=== PATIENT | female | born 1935 | race Caucasian/White ===

== ENCOUNTER 2016-06-20 17:50 | Emergency (ER) | payer OTHER, MEDICARE ==
[~2016-06-20] VITALS: Ht 162.6 cm; Wt 68.0 kg
--- NOTE | ~2016-06-20 | P ---
[facility] [place] [address] PROCEDURE REPORT Name: PATRIZIASALLY SINTIA Room #: DEP [facility]#: [id number] Admission: 06/20/16 Attend Phys: Discharge: 06/20/16 Date of : 31 Report #: [id number] THIS REPORT FOR: //name// CC: Isamar Leong MD BRIEF HISTORY: The patient is an 80-year-old woman with longstanding history of reflux, which has not been well controlled. She has recently for the past month or so, has had intermittent solid food dysphagia. In addition, she has major stress in her life that her several months ago unexpectedly. She developed food bolus obstruction this evening while eating raw baby carrots. PREOPERATIVE DIAGNOSES: Food bolus obstruction in the esophagus and poorly controlled reflux disease. POSTOPERATIVE DIAGNOSES: 1. Food bolus obstruction in the esophagus, cleared. 2. Esophageal tear, distal esophagus secondary to food bolus obstruction. 3. Moderately tight Schatzki ring. 4. Small hiatus hernia. 5. Erythematous gastritis. MEDICATIONS: Conscious sedation with 50 mg of fentanyl and 3 mg of Versed. SPECIMEN: None. ESTIMATED BLOOD LOSS: None. PROCEDURE: EGD with clearance of food bolus obstruction of the esophagus. CONSENT: Prior to conscious sedation, procedure of endoscopy discussed with the patient as well as potential risks and its complications. She indicates she understands and desires to proceed. DESCRIPTION OF PROCEDURE: With the patient in left lateral decubitus position, the Fuji video endoscope was inserted in the cervical esophagus under direct vision without difficulty. Examination of this organ to its entire length revealed no fluid or food debris in the proximal mid esophagus. However, distally solid material was seen impacted at, what appeared to be, the GE junction. FINDINGS: The material is orange in color and consistent with history of ingested carrots. There is assumed to be a clump of carrots impacted right at the squamocolumnar junction. I was able to work the scope around the periphery and see that there appeared to be a ring. I could see small amount of lumen. I very carefully passed the scope into the lumen alongside the ring and the food [facility] [address] [place] [address] PROCEDURE REPORT Name: SALLY ACHARYA Room #: DEP [facility].#: [id number] Admission: 06/20/16 Attend Phys: Discharge: 06/20/16 Date of : 31 Report #: [id number] bolus. The scope was advanced fully into the stomach, which was examined on end views as well as retroflexed views. Examination of the proximal stomach revealed some food debris which past through with the scope. A small hiatus hernia was seen. No mass lesions were seen. Examination of distal stomach revealed some erythema, but no ulcers, erosions or evidence of outlet obstruction. The pylorus was normal. Duodenal bulb was normal. Second portion of duodenum was normal. The scope was then withdrawn back in the esophagus. We very carefully worked the remaining food debris into the stomach. Upon clearance of the distal esophagus, there was clearly a 1.5 cm x 3 mm tear in the distal esophagus at the level of the GE junction. There appeared to be organizing material around the edge of the tear with some whitish exudate and no blood. I suspect this happened earlier today with her food bolus obstruction. There was no blood seen during this exam, and there did not appear to be any mucosal injuries related to passage of the scope. The ring was present, but due to the tear, it was felt to be unsafe to attempt to dilate the patient's stricture at this time. The scope was drawn. The patient tolerated the procedure well. CONDITION OF THE PATIENT UPON DISCHARGE: Following the procedure, the patient is drowsy. She will be discharged home when fully ambulatory. INSTRUCTIONS TO THE PATIENT AND FAMILY AT THE TIME OF DISCHARGE: The patient with food bolus obstruction in the esophagus. Food bolus cleared as described above. She has had significant reflux symptoms. We will place her on omeprazole 20 mg daily. I advised her to take caution when chewing and swallowing of food. We will have her return in 4-6 weeks for repeat endoscopy and dilation of the stricture. Since the ring was not dilated, she needs to be extremely cautious with chewing until the tear heals, and we are able to safely dilate her distal esophagus. She will return to care of Dr. Edwar David. Return to see me as needed. <ELECTRONICALLY SIGNED> By: Silverio Vieira MD 06/23/161942 [id number] Silverio Vieira MD /nt
[~2016-06-20 17:50] MED LIST: B-COMPLEX-VITA1 EACH; ENALAPRIL MALEA20 MG; GLUCOPHAGE500 MG PO; HYDROCHLOROTHIA25 M2; OMEGA-31000 M1; PREMPHASE 0.621 EAC1; PRILOSEC40 MG; SYNTHROID300 MCG; ZOFRAN ODT4 MG PO
[2016-06-20] MEDS ORDERED: NORVASC5 MG PO (18:33)
[2016-06-20 21:36] VITALS: BP 164/70
[2016-07-18] MEDS ORDERED: LEVOTHYROXIN0.088 MG PO (11:32)
[2016-07-18] MEDS ORDERED: LASIX 20 MG TAB20 MG PO (11:34)
[2016-07-18] MEDS ORDERED: OMEPRAZOLE 20 M20 M1 PO (11:34)
[2016-07-18] MEDS ORDERED: ESTROVEN ENERG1 EACH PO (11:35)
== END 2016-06-20 19:15 | disposition home or self-care (01) ==
LOC: ER 17:50
DX: K22.2 Esophageal obstruction (principal); Z87.891 Personal history of nicotine dependence